=== PATIENT | female | born 1995 | race Two or more races ===

== ENCOUNTER 2022-06-01 07:35 | Inpatient (IN) | payer MEDICAID ==
[~2022-06-01] VITALS: Ht 162.6 cm; Wt 77.2 kg
[2022-06-01 08:20] LABS: ANION GAP 6 mmol/L (8-16); BASOPHILS % (AUTO) 0.3 % (0.0-2.0); CALCIUM, TOTAL 9.1 mg/dL (8.8-10.5); CARBON DIOXIDE 29 mmol/L (22-29); CHLORIDE 105 mmol/L (98-107); CREATININE 0.61 mg/dL (0.60-1.30); EOSINOPHILS % (AUTO) 4.6 % (1.0-6.0); GLOMERULAR FILTR. RATE CALC > 60 mL/min (>60); GLUCOSE,RANDOM 95 mg/dL (70-110); HEMATOCRIT 40.8 % (36-46); HEMOGLOBIN 13.5 g/dL (12.0-16.0); LYMPHOCYTES # (AUTO) 1.7 K/uL (1.0-4.8); LYMPHOCYTES % (AUTO) 23.9 % (22.0-44.0); MEAN CORPUSCULAR HEMOGLOBIN 27.3 pg (26.0-34.0); MEAN CORPUSCULAR VOLUME 83 fL (80-100); MONOCYTES # (AUTO) 0.6 K/uL (0.1-1.0); MONOCYTES % (AUTO) 7.9 % (2.0-9.0); NEUTROPHILS # (AUTO) 4.5 K/uL (1.8-7.7); NEUTROPHILS % (AUTO) 63.3 % (40.0-70.0); PLATELET COUNT (AUTO) 370 K/uL (150-450); POTASSIUM 4.2 mmol/L (3.5-5.1); RED BLOOD CELL COUNT(AUTO) 4.95 MIL/uL (4.00-5.20); SODIUM SERUM 140 mmol/L (136-145); UREA NITROGEN, BLOOD 7 mg/dL (7-18)
[2022-06-01 08:28] LABS: ALANINE AMINOTRANSFERASE 32 U/L (12-78); ALKALINE PHOSPHATASE 82 U/L (46-116); ASPARTATE AMINOTRANSFERASE 19 U/L (15-37); BILIRUBIN,TOTAL 0.2 mg/dL (0.1-1.0); TOTAL PROTEIN, SERUM 7.6 g/dL (6.4-8.2)
[2022-06-01] MEDS ORDERED: ACETAMINOPHEN 325 MG TABLET PO PRN (11:45)
[2022-06-01 12:00] LABS: AMPHET/METH SCREEN,URINE POSITIVE (NEGATIVE); BARBITURATE SCREEN, URINE NEGATIVE (NEGATIVE); BENZODIAZEPINES SCREEN,URINE NEGATIVE (NEGATIVE); CANNABINOID SCREEN,URINE NEGATIVE (NEGATIVE); COCAINE SCREEN,URINE NEGATIVE (NEGATIVE); METHADONE SCREEN, URINE NEGATIVE (NEGATIVE); OPIATE SCREEN,URINE NEGATIVE (NEGATIVE)
[2022-06-01 12:03] LABS: APPEARANCE,URINE HAZY (CLEAR); BILIRUBIN,URINE NEGATIVE (NEGATIVE); GLUCOSE, URINE (UA) NEGATIVE (NEGATIVE); KETONES,URINE TRACE mg/dL (NEGATIVE); LEUKOCYTE ESTERASE ,URINE LARGE (NEGATIVE); NITRATE,URINE POSITIVE (NEGATIVE); OCCULT BLOOD,URINE NEGATIVE (NEGATIVE); PH,URINE 6.5 (5.0-8.0); PROTEIN,URINE 30-70 mg/dL (NEGATIVE); SPECIFIC GRAVITIY, URINE 1.036 (1.003-1.030); UROBILINOGEN,URINE <=1.0 mg/dL (<=1.0)
[2022-06-01 12:07] LABS: PHENCYCLIDINE SCREEN,URINE NEGATIVE (NEGATIVE)
[2022-06-01 12:49] LABS: SQUAMOUS EPITHELIAL CELL,UR Many /LPF (None Seen)
[2022-06-01 12:50] LABS: BACTERIA,URINE Many /HPF (None Seen); RBC,URINE None Seen /HPF (0-2)
[2022-06-01] MEDS ORDERED: ARIP10TA38 PO (13:38)
[2022-06-01 13:39] LABS: COVID AG,FIA SOURCE NASAL SWAB
[2022-06-01] MEDS ORDERED: BACITRACIN 0.9 GM PACKET OINTMENT TP ONE (15:45)
[2022-06-01] MEDS ORDERED: HALOPERIDOL 5 MG TABLET PO PRN (16:30)
[2022-06-01] MEDS ORDERED: ZOLPIDEM TARTRATE 10 MG TABLET PO PRN (16:30)
[2022-06-01 17:56] VITALS: BP 139/72
[2022-06-01 20:52] VITALS: BP 132/70
[2022-06-02 08:16] VITALS: BP 126/78
[2022-06-02] MEDS ORDERED: ALBUTEROL SULFATE HFA 90 MCG/PUFF 8 GM INHALER IH PRN (12:45)
[2022-06-02] MEDS ORDERED: ACETAMINOPHEN 325 MG TABLET PO PRN (12:45)
[2022-06-02] MEDS ORDERED: DOCUSATE SODIUM 100 MG CAPSULE PO PRN (12:45)
[2022-06-02] MEDS ORDERED: IBUPROFEN 400 MG TABLET PO PRN (12:45)
[2022-06-02] MEDS ORDERED: NICOTINE 14 MG/24 HOUR PATCH TD PRN (12:45)
[2022-06-02] MEDS ORDERED: LOPERAMIDE HCL 2 MG CAPSULE PO PRN (12:45)
[2022-06-02] MEDS ORDERED: GuaiFENesin/D-METHORPHAN [SUGAR-FREE] 200-20MG/10 ML SYRUP UDCUP PO PRN (12:45)
[2022-06-02] MEDS ORDERED: PETROLATUM,WHITE 28 GM JELLY TP PRN (12:45)
[2022-06-02] MEDS ORDERED: ONDANSETRON HCL 4 MG TABLET PO PRN (12:45)
[2022-06-02] MEDS ORDERED: MAGNESIUM HYDROXIDE SUSPENSION 30 ML UDCUP PO PRN (12:45)
[2022-06-02] MEDS ORDERED: CloNIDine HCL 0.1 MG TABLET PO PRN (12:45)
[2022-06-02 16:05] VITALS: BP 114/67
[2022-06-02] MEDS: ARIPiprazole 10 MG TABLET PO SCH (18:13)
[2022-06-03] MEDS: ARIPiprazole 10 MG TABLET PO SCH (08:26)
[2022-06-03 08:42] VITALS: BP 103/55
[2022-06-04] MEDS: ARIPiprazole 10 MG TABLET PO SCH (08:06)
[2022-06-04 08:36] VITALS: BP 131/81
[2022-06-04 16:39] VITALS: BP 133/79
[2022-06-05 08:18] VITALS: BP 95/61
[2022-06-05] MEDS: ARIPiprazole 10 MG TABLET PO SCH (08:19)
[2022-06-05 16:07] VITALS: BP 126/63
[2022-06-05] MEDS: LORazepam 2 MG TABLET PO PRN (16:50)
[2022-06-06] MEDS: ARIPiprazole 10 MG TABLET PO SCH (08:11)
[2022-06-06 08:25] VITALS: BP 130/80
[2022-06-06 16:37] VITALS: BP 134/85
[2022-06-07] MEDS: ARIPiprazole 10 MG TABLET PO SCH (08:16)
[2022-06-07 08:46] VITALS: BP 112/59
[2022-06-07 09:14] LABS: COVID AG,FIA SOURCE NASAL SWAB
[2022-06-07 16:30] VITALS: BP 119/73
[2022-06-08] MEDS: ARIPiprazole 10 MG TABLET PO SCH (08:27)
[2022-06-08 09:00] VITALS: BP 113/81
[2022-06-08] MEDS: LORazepam 2 MG TABLET PO PRN (15:14)
[2022-06-08 17:17] VITALS: BP 130/71
[2022-06-09] MEDS: ARIPiprazole 10 MG TABLET PO SCH (08:32)
[2022-06-09 17:12] VITALS: BP 148/77
[2022-06-10 08:32] VITALS: BP 123/77
[2022-06-10] MEDS: ARIPiprazole 10 MG TABLET PO SCH (08:38)
[2022-06-10 16:37] VITALS: BP 96/58
[2022-06-11] MEDS: LORazepam 2 MG TABLET PO PRN (05:51)
[2022-06-11] MEDS: ARIPiprazole 10 MG TABLET PO SCH (08:22)
[2022-06-11 08:32] VITALS: BP 110/65
[2022-06-11 16:07] VITALS: BP 109/67
[2022-06-12] MEDS: ARIPiprazole 10 MG TABLET PO SCH (08:20)
[2022-06-12] MEDS: LORazepam 2 MG TABLET PO PRN (08:21)
[2022-06-12 08:54] VITALS: BP 131/72
[2022-06-12 16:23] VITALS: BP 111/66
[2022-06-12 16:24] VITALS: BP 111/66
[2022-06-13] MEDS: ARIPiprazole 10 MG TABLET PO SCH (08:07)
[2022-06-13 08:28] VITALS: BP 122/76
[2022-06-13] MEDS: MAG HYDROX/AL HYDROX/SIMETH ES 30 ML SUSPENSION UDCUP PO PRN ×2 (11:23→17:50)
[2022-06-13 16:38] VITALS: BP 118/66
[2022-06-14 06:45] LABS: COVID AG,FIA SOURCE NASAL SWAB
[2022-06-14] MEDS: ARIPiprazole 10 MG TABLET PO SCH (08:09)
[2022-06-14 08:23] VITALS: BP 114/60
[2022-06-14 16:07] VITALS: BP 105/70
[2022-06-15] MEDS: ARIPiprazole 10 MG TABLET PO SCH (08:42)
[2022-06-15 09:01] VITALS: BP 135/68
[2022-06-15] MEDS ORDERED: ARIP10TA38 PO (09:24)
== END 2022-06-15 13:10 | disposition home or self-care (01) | DRG 750 ==
LOC: EMS 07:43 → 3EC 14:02 → UNDOADMIN 14:04 → 3EI 14:04 → 3EC 06-02 12:16 → 3EI 06-14 18:08
PROVIDERS: ADMIT Psychiatry & Neurology Psychiatry; ATTEND Psychiatry & Neurology Psychiatry
DX: F20.0 Paranoid schizophrenia (principal); R45.851 Suicidal ideations; Z91.14 Patient's other noncompliance with medication regimen; F15.20 Other stimulant dependence, uncomplicated; G47.00 Insomnia, unspecified; F41.9 Anxiety disorder, unspecified; F17.200 Nicotine dependence, unspecified, uncomplicated; R00.0 Tachycardia, unspecified; Z20.822 Contact with and (suspected) exposure to COVID-19; F19.10 Other psychoactive substance abuse, uncomplicated; Z59.02 Unsheltered homelessness; Z93.3 Colostomy status; Z99.3 Dependence on wheelchair; Z71.6 Tobacco abuse counseling
CPT/HCPCS: 80053; 80307; 81001; 84703; 85025; 87086; 87186; 97162; 99285; G0480; 36415-L1; 36415-TC; Z7502; Z7610